=== PATIENT | male | born 1980 | race Caucasian/White ===

== ENCOUNTER 2016-06-12 17:42 | Emergency (ER) | payer SELFPAY ==
[~2016-06-12] VITALS: Ht 177.8 cm; Wt 75.0 kg
[2016-06-12] MEDS ORDERED: KEPP500 PO (17:48)
[2016-06-12 18:30] VITALS: BP 120/69
[2016-06-12] MEDS ORDERED: LEVETIRACETAM 500MG PREMIX 100 ML IV ONE (19:00)
[2016-06-12] MEDS ORDERED: KETOROLAC 30MG/ML VIAL IV ONE (19:00)
== END 2016-06-12 19:27 | disposition left against medical advice (07) ==
LOC: ER 17:57
DX: G40.909 Epilepsy, unspecified, not intractable, without status epilepticus (principal); F12.10 Cannabis abuse, uncomplicated; Z91.14 Patient's other noncompliance with medication regimen
CPT/HCPCS: 82962; 99283; J1885; J1953